=== PATIENT | female | born 1980 | race Hispanic/Latino ===

== ENCOUNTER 2024-09-17 12:39 | Emergency (ER) | payer BC ==
[~2024-09-17] VITALS: Ht 162.6 cm; Wt 98.9 kg
[2024-09-17] MEDS: MAGNESIUM CITRATE 296 ML SOLUTION PO STA (12:45)
--- NOTE | 2024-09-17 14:02 | HMCIMG ---
EXAM: CR Abdomen, 2 View. CLINICAL HISTORY: constipation COMPARISON: None provided. FINDINGS: BOWEL: The bowel gas pattern is within normal limits. Abundant colonic fecal matter reflects constipation. PERITONEUM/SOFT TISSUES: No free air evident. No pathologic appearing calcification. BONES: No acute osseous abnormality. IMPRESSION: 1. No acute findings. Abundant colonic fecal matter reflects constipation. Nonobstructive bowel gas pattern. /[place]
--- NOTE | 2024-09-17 14:37 | ERN ---
ED Note History of Present Illness Stated Complaint: CONSTIPATION Chief Complaint: Constipation Time Seen by MD: 12:43 Time Seen by Midlevel: 12:50 Dictation: 44-year-old female with a history of 1st cancer on chemotherapy coming in with complaints of constipation. Patient states her last chemo was , she began with constipation on Saturday. Patient states she has tried Dulcolax and lactulose and nothing has helped. Denies having any nausea or vomiting. Allergies: Coded Allergies: No Known Drug Allergies (Unverified Allergy, Unknown, 09/17/24) Past Medical History Past Medical History: Cancer, Other Additional Past Medical Hx: BREAST Surgical History: Other Surgical History Other: MASTECTOMY LEFT, Review of System Dictation Constitutional: Negative for fever,chills, and weight loss Eyes: Negative for injury, pain,redness, and discharge ENT: Negative for injury,pain or swelling Cardiovascular: Negative for chest pain, palpitations, and edema Respiratory: Negative for shortness of breath, cough, and wheezing, Abdomen/GI: Negative for abdominal pain, nausea, vomiting, complaining of constipation Back: Negative for injury and pain : Negative for injury, bleeding and discharge MS/Extremity: Negative for injury and deformity Skin: Negative for rash, and discoloration Neuro: Negative for headache, weakness, numbness, tingling, and seizure Psych: Negative for suicide ideation, homicidal ideation, and hallucinations Review of Systems: was completed Initial Vital Sign VS Vital Signs Date Time Temp Pulse Resp B/P (MAP) Pulse Ox O2 Delivery O2 Flow Rate FiO2 09/17/24 12:40 98.1 110 20 134/83 99 0 09/17/24 16:10 Room Air* 21 Physical Exam Dictation General: awake, alert, NAD Head/Face: Normocephalic, atraumatic Eyes: PERRL, EOMI, vision at baseline ENT: oral cavity clear, TMs clear, no signs of infection Neck: Trachea midline, supple, no nuchal rigidity Cardiovascular: RRR, normal S1/S2, No MRGs, no JVD Respiratory: CTAB, no respiratory distress, No rales or wheezes Abdomen: Soft, non-tender, non-distended, normal bowel sounds, no guarding or rebound. Skin: Warm, dry, normal turgor, no rash MS/Extremity: Pulses equal, no cyanosis, neurovascular intact, FROM Neuro: COAx4, GCS 15, strength 5/5, CN 2-12 intact, normal cerebellar exam, normal gait, Psych: Normal behavior, mood, and affect normal Results (Laboratory/Radiology) X-RAY Comment: [facility] [address] [place] [address] IMAGING REPORT Signed PATIENT: HERBER CAMARILLO MR#: [id number] : 1980 SEX: F AGE: 44 LOCATION: [facility] ORDER 46 STATUS: REG ER REPORT#: [id number] SERVICE 1245 REASON: constipation ORDERING PHYSICIAN: THOMAS DAWSON NP PROCEDURE: ABD 1VW - ABD 1VW EXAM: CR Abdomen, 2 View. CLINICAL HISTORY: constipation COMPARISON: None provided. FINDINGS: BOWEL: The bowel gas pattern is within normal limits. Abundant colonic fecal matter reflects constipation. PERITONEUM/SOFT TISSUES: No free air evident. No pathologic appearing calcification. BONES: No acute osseous abnormality. IMPRESSION: 1. No acute findings. Abundant colonic fecal matter reflects constipation. Nonobstructive bowel gas pattern. /[place] DICTATED BY: AUSTIN HINTON Jr., MD DATE: 09/17/241500 ELECTRONICALLY SIGNED BY: AUSTIN HINTON Jr., MD DATE: 09/17/241500 ED Course ED Course Orders Procedure Category Date Status Time Abd 1vw RAD 09/17/24 Resulted 12:45 Magnesium Citrate PHA 09/17/24 Complete (Magnesium Citrate) 12:45 *Nursing CPOE 09/17/24 Transmitted Communication: 12:45 Magnesium Citrate PHA 09/17/24 Complete (Magnesium Citrate) 16:15 Current Medications Medications (Trade) Dose Ordered Sig/Kenneth Route PRN Reason Start Time Stop Time Status Last Admin Dose Admin Magnesium Citrate (Magnesium Citrate) 296 ml ONCE STAT PO 09/17/24 12:45 09/17/24 14:48 DC 09/17/24 12:45 Magnesium Citrate (Magnesium Citrate) 296 ml STK-MED ONCE .ROUTE 09/17/24 16:15 09/17/24 16:15 DC 09/17/24 16:20 Vital Signs Date Time Temp Pulse Resp B/P (MAP) Pulse Ox O2 Delivery O2 Flow Rate FiO2 09/17/24 16:10 98.1 110 20 134/83 99 Room Air* 0 21 09/17/24 12:40 98.1 110 20 134/83 99 0 Medical Decision Making MDM MDM: 48-year-old female with a history of migraines coming in with complaints of headache onset two days ago. Patient states he has photophobia and phonophobia. LMP 08/29/2024 states she is only taking Benadryl at 7:00 a.m. and has not helped. Denies any fevers, nausea vomiting, no neck pain. X-ray shows constipation. Patient received has been dizzy and so history here in ER. I ordered a Fleet enema however patient would rather take the enema home and do it herself. Discussed with the patient signs and symptoms of return back to the ER. Patient verbalized understanding, answered all questions. Differential diagnosis: Constipation, Rationale: Tests considered and ordered secondary to shared decision making include: Previous outside records reviewed: Old ER visits. Risk of complication and/or morbidity or mortality of patient management: None Medications-Per medication reconciliation Need for hospitalization: Patient does not meet criteria for hospitalization. Need for emergency major/minor surgery: No There are no social concerns with this patient. Prescription drug management Prescriptions will include symptomatic care Patient's prior external medical records from other ER visits were reviewed by me as indicated. Prior testing and results from previous visits were reviewed. Prior tests were taken into account with medical decision making and resource utilization, independent historian/historians were used to obtain complete medical history. I independently interpreted the test that were performed, results were reviewed by me and considered findings on radiology if ordered. Medical management and examination interpretation discussions were had by me with other qualified healthcare professionals as indicated for the patient's care. DX & DISP Disposition: Discharge Departure Impression: Primary Impression: Constipation Additional Impression: Hemorrhoids Condition: Stable Scripts Phenyleph/Pramoxin/Glycr/W.pet (Preparation H Cream) 0.25 %-1 % Cream..g. 1 APPL TP BID for 30 Days, #51 GM 0 Refills Prov: THOMAS DAWSON FILL MANAGER 09/17/24 Additional Instructions: remove the cap from the enema before applying. Return if you have any worsening symptoms. Referrals: KATHERINE ACUNA MD (PCP) Time of Disposition: 16:37 I have reviewed the case, and I agree with, Diagnosis and Plan THOMAS DAWSON NP Sep 17, 2024 14:37
[2024-09-17] MEDS: MAGNESIUM CITRATE 296 ML SOLUTION ONE (16:20)
--- NOTE | 2024-09-17 16:35 | NUR ---
PER DR REQUEST, FLEET ENEMA GIVEN TO PT
[2024-09-17] MEDS ORDERED: PHEN26CR2 TP (16:38)
[2024-09-17 16:44] VITALS: BP 128/74; PULSE 92; RESP 20; TEMP 98.1; O2SAT 99
== END 2024-09-17 16:45 | disposition home or self-care (01) ==
LOC: EDH 12:39
DX: K59.00 Constipation, unspecified (principal); K64.9 Unspecified hemorrhoids; Z98.890 Other specified postprocedural states
CPT/HCPCS: 74018; 99283